=== PATIENT | female | born 1965 | race Caucasian/White ===

== ENCOUNTER 2021-08-23 14:45 | Outpatient (REF) | payer BC, SELFPAY ==
--- NOTE | ~2021-08-23 | MM_ITS ---
EXAMINATION: MM SCREENING DIGITAL BREAST TOMOSYNTHESIS, BILATERAL CLINICAL INFORMATION: Screening. Asymptomatic. The lifetime risk of breast cancer based on the Tyrer-Cuzick Model is 8%. COMPARISON: Mammography: 03/12/2020, 10/03/2018, 09/26/2018, 11/28/2016. Composition of the specimen. TECHNIQUE: Digital breast tomosynthesis is performed in both the craniocaudal and mediolateral oblique views along with computer-aided detection (CAD). Synthesized 2D images are generated from the tomosynthesis. FINDINGS: There are scattered areas of fibroglandular density (ACR BI-RADS breast composition Category b). Parenchymal pattern is similar to prior studies. There is no developing density or interval mass or architectural abnormality. Deep dermal lesion periareolar upper outer left breast is stable from prior studies measuring just under 1 cm. There is a stable nodular asymmetry posterior central right breast on CC view. Neither breast shows developing density or interval architectural abnormality. No abnormal calcifications. The axilla and skin contours are unremarkable. MM/MM tomosynthesis screening BI IMPRESSION: No significant changes from prior studies. ASSESSMENT: BI-RADS 2: Benign RECOMMENDATION: Routine annual mammography screening. This patient's information was entered into a reminder system with a target due date for their next mammogram.
== END 2021-08-23 14:46 | disposition home or self-care (01) ==
LOC: HO.MAMMO 14:45
PROVIDERS: Visit Provider Internal Medicine
DX: Z12.31 Encounter for screening mammogram for malignant neoplasm of breast (principal)
CPT/HCPCS: 77063; 77067

== ENCOUNTER 2021-10-04 13:37 | Outpatient (REF) | payer BC, SELFPAY ==
--- NOTE | ~2021-10-04 | XR_ITS ---
EXAMINATION: XR LUMBOSACRAL SPINE CLINICAL INFORMATION: Low back pain COMPARISON: Previous x-ray from 2006 TECHNIQUE: Three views of the lumbosacral spine. FINDINGS: There is mild curvature of the lower lumbar spine to the right. Bone alignment is otherwise normal. No fracture or dislocation is seen. There is degenerative disc disease at L4-L5. There is lower lumbar spine facet arthritis. XR/XR lumbar spine 2-3V IMPRESSION: Mild curvature of the lower lumbar spine to the right and degenerative change.
--- NOTE | ~2021-10-04 | XR_ITS ---
EXAMINATION: XR CERVICAL SPINE CLINICAL INFORMATION: Neck pain COMPARISON: None TECHNIQUE: 4 views of the cervical spine including swimmer's view were obtained. FINDINGS: Bone alignment is normal. No fracture or dislocation is seen. There is degenerative spondylosis from C3-C4 to C6-C7. There is disc space narrowing from C3-C4 to C5-C6. There are prominent bilateral C7 transverse processes. Prevertebral soft tissues are normal. XR/XR cervical spine 3V IMPRESSION: Degenerative changes.
== END 2021-10-04 13:38 | disposition home or self-care (01) ==
LOC: HO.HMGCX 13:37
PROVIDERS: Visit Provider Internal Medicine
DX: M54.2 Cervicalgia (principal); M54.50 Low back pain, unspecified
CPT/HCPCS: 72040; 72100

== ENCOUNTER → 2022-08-26 10:01 | Outpatient (BNVA) | payer BC, SELFPAY | PROVIDERS: PCP Internal Medicine; Visit Provider Surgery | DX: Z13.89 Encounter for screening for other disorder (principal) ==

== ENCOUNTER 2022-10-21 11:59 | Outpatient (REF) | payer BC, SELFPAY ==
--- NOTE | ~2022-10-21 | MM_ITS ---
EXAMINATION: MM SCREENING DIGITAL BREAST TOMOSYNTHESIS, BILATERAL CLINICAL INFORMATION: Screening. Asymptomatic. The lifetime risk of breast cancer based on the Tyrer-Cuzick Model is 7%. COMPARISON: Mammography: 08/23/2021, 03/12/2020, 10/03/2018, 09/26/2018, 11/28/2016; targeted left breast ultrasound 10/03/2018, 11/20/2015 TECHNIQUE: Digital breast tomosynthesis is performed in both the craniocaudal and mediolateral oblique views along with computer-aided detection (CAD). Synthesized 2D images are generated from the tomosynthesis. FINDINGS: There are scattered areas of fibroglandular density (ACR BI-RADS breast composition Category b). There are no significant masses, abnormal calcifications, or other abnormalities. Parenchymal pattern is similar to prior studies. No architectural abnormality. The axilla are unremarkable. Again, there is a chronic intradermal lesion likely sebaceous cyst periareolar 1:00 left breast, slightly increased in size from prior studies. This measures approximately 10 x 9 mm compared with prior measurement 7 x 5 mm. MM/MM tomosynthesis screening BI IMPRESSION: -No mammographic evidence of malignancy. -Chronic sebaceous cyst 1:00 periareolar left breast, 1 cm, slightly increased from prior exam. ASSESSMENT: BI-RADS 2: Benign RECOMMENDATION: Routine annual mammography screening. This patient's information was entered into a reminder system with a target due date for their next mammogram.
== END 2022-10-21 12:00 | disposition home or self-care (01) ==
LOC: HO.MAMMO 11:59
PROVIDERS: Visit Provider Internal Medicine
DX: Z12.31 Encounter for screening mammogram for malignant neoplasm of breast (principal)
CPT/HCPCS: 77063; 77067

== ENCOUNTER → 2022-11-03 14:12 | Outpatient (BNVA) | payer BC, SELFPAY | PROVIDERS: PCP Internal Medicine; Visit Provider Psychiatry & Neurology Psychiatry | DX: Z13.89 Encounter for screening for other disorder (principal) ==

== ENCOUNTER 2022-12-27 13:16 | Outpatient (REF) | payer BC, SELFPAY ==
--- NOTE | ~2022-12-27 | XR_ITS ---
EXAMINATION: XR SHOULDER, RIGHT CLINICAL INFORMATION: Pain COMPARISON: None available. TECHNIQUE: AP external rotation, Grashey, scapular Y, and axillary views of the right shoulder. FINDINGS: The bones are intact. No fracture. Glenohumeral and acromioclavicular alignment is anatomic with normal joint space. Small marginal osteophyte extends off the inferior aspect of the humeral head. No abnormal soft tissue calcifications. XR/XR shoulder RT min 2V IMPRESSION: No acute bony abnormality.
== END 2022-12-27 13:17 | disposition home or self-care (01) ==
LOC: HO.HMGCX 13:16
PROVIDERS: PCP Internal Medicine; Visit Provider Internal Medicine
DX: M25.511 Pain in right shoulder (principal)
CPT/HCPCS: 73030

== ENCOUNTER → 2023-03-02 15:42 | Outpatient (BNVA) | payer BC, SELFPAY | PROVIDERS: PCP Internal Medicine; Visit Provider Psychiatry & Neurology Psychiatry ==

== ENCOUNTER 2023-06-28 17:08 | Outpatient (AMB) | payer BC, SELFPAY ==
--- NOTE | 2023-06-28 13:13 | A.OFFPSYCH_ITS ---
Intake Intake Visit Reasons: Depression Allergies No Known Allergies Allergy (Verified 08/26/22 10:10) HPI- Psychiatric Chief Complaint: Depression HPI Narrative: Patient has been increasingly anxious depressed ruminating. Difficulty concentrating focusing with intrusive CT trophic thinking and worsening mood. The patient's mood has been oblique anxious catastrophic thinking hopeless helpless increasingly despondent difficulty functioning at work. Overwhelmed multiple changes feeling she is not getting appropriate direction and who to go to Past Psychiatric History: History of depression and panic attacks with agoraphobia used to see Dr. Brown Mental Status Exam Mental Status Exam Patient Appearance: Well Grooomed Patient Orientation: Person, Place, Time and Situation Level of Consciousness: Awake and Appropriate Mood Description: Depressed and Blunted Affect Description: Appropriate and Constricted Patient Cognition Impaired: No Ability to Follow Directions: Good Speech Pattern: Clear Memory Description: Intact Hallucinations: None Delusions: Not Present Thought Process: Intact and Goal Oriented Thought Content: positive for Goal Oriented, positive for Preoccupation, negative for Suicidal Ideation or negative for Homicidal Ideation Depressive Symptoms: Increased Anxiety, Increased Irritability, Hopelessness, Increased Fatigue, Loss of Energy and Difficulty Concentrating Judgement: Good Telehealth Telehealth Location of provider rendering services: practice address Location of patient: address on file Patient Identification confirmed using: Name, : Yes Telehealth method: video Patient verbally consented to treatment: Yes Patient verbally consented to billing insurance company: Yes Minutes spent on Phone/Video with Pt.: 28 Assessment and Plan Assessment & Plan (1) Dysthymia: Status: Acute Code(s): F34.1 - Dysthymic disorder (2) Generalized anxiety disorder: Status: Acute Code(s): F41.1 - Generalized anxiety disorder (3) Panic disorder [episodic paroxysmal anxiety]: Status: Acute Code(s): F41.0 - Panic disorder [episodic paroxysmal anxiety] Plan Patient increasingly depressed overwhelmed strongly urge patient to see EAP discussed 1 week leave and then return to work half time. Discussed problem- solving strategies consider increase fluoxetine to 60 mg versus Wellbutrin for augmentation strongly urged counseling in order to help maintain % effective and problem-solving denies any active SI . Strategies to manage anxiety catastrophic thinking Counseling and coordination of Care Pt. Self Management counseling: Breathing and Cognitive restructuring Diagnosis and Prognosis Counseling: Adequacy of current interventions Details: I spent [37] minutes reviewing the record, seeing the patient and documenting in the medical record. Counseling provided to the patient/caregiver as outlined below. Addressed patient/caregiver concerns regarding current medication regime including effective adherence. Addressed patient/caregiver concerns regarding diagnosis and prognosis including accuracy of diagnosis, prognosis over time, impact of diagnosis. Addressed patient/caregiver concerns regarding impact of recent stressors. PFSH Medical History Dysthymia Generalized anxiety disorder Panic disorder [episodic paroxysmal anxiety] Family History Maternal Uncle Pancreatic cancer Social History Alcohol intake: current Patient Tobacco Use Status: Never used Tobacco Social History: 1 sister mother alive mother father anxiety depression f disable d anxiety f alcogholic absent father mgm murdered mother ptsd Substance History: past heavy Trauma History: childhood phy emotional trauma Coding Level of Care Code Est Pt Level 3 (77969) Therapy 30m w/E&M (17725) Diagnoses Dysthymia F34.1 Generalized anxiety disorder F41.1 Panic disorder [episodic paroxysmal anxiety] F41.0
== END 2023-06-28 17:08 | disposition home or self-care (01) ==
LOC: HO.HOP 17:08
PROVIDERS: PCP Internal Medicine; Visit Provider Psychiatry & Neurology Psychiatry
DX: F34.1 Dysthymic disorder (principal); F41.1 Generalized anxiety disorder; F41.0 Panic disorder [episodic paroxysmal anxiety]
CPT/HCPCS: 90833; 99213

== ENCOUNTER → 2023-06-28 17:08 | Outpatient (BNVA) | payer BC, SELFPAY | PROVIDERS: PCP Internal Medicine; Visit Provider Psychiatry & Neurology Psychiatry ==

== ENCOUNTER 2023-10-24 12:09 | Outpatient (REF) | payer BC, SELFPAY | END 2023-10-24 12:10 | disposition home or self-care (01) | LOC: HO.MAMMO 12:09 | PROVIDERS: PCP Internal Medicine; Visit Provider Internal Medicine | DX: Z12.31 Encounter for screening mammogram for malignant neoplasm of breast (principal) | CPT/HCPCS: 77063; 77067 ==

== ENCOUNTER → 2023-10-24 12:15 | Outpatient (BNV) | payer BC, SELFPAY | PROVIDERS: PCP Internal Medicine; Visit Provider Radiology Diagnostic Radiology | DX: Z12.31 Encounter for screening mammogram for malignant neoplasm of breast (principal) | CPT/HCPCS: 77063; 77067 ==

== ENCOUNTER 2023-11-09 15:49 | Outpatient (AMB) | payer BC, SELFPAY ==
--- NOTE | 2023-11-09 13:12 | A.OFFPSYCH_ITS ---
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 Brown Mental Status Exam Mental Status Exam Patient Appearance: Well Grooomed Patient Orientation: Person, Place, Time and Situation Level of Consciousness: Awake and Appropriate Patient Behavior: Appropriate Mood Description: Depressed and Blunted Affect Description: Appropriate and Constricted Patient Cognition Impaired: No Ability to Follow Directions: Good Speech Pattern: Clear Memory Description: Intact Hallucinations: None Delusions: Not Present Thought Process: Intact and Goal Oriented Thought Content: positive for Goal Oriented, positive for Preoccupation, negative for Suicidal Ideation or negative for Homicidal Ideation Depressive Symptoms: Increased Anxiety, Increased Irritability, Hopelessness, Increased Fatigue, Loss of Energy and Difficulty Concentrating Judgement: Good Judgement and Insight: Difficulty with self motivation understanding need to approach anxiety in order to retrain the brain Telehealth Telehealth Location of provider rendering services: practice address Location of patient: address on file Patient Identification confirmed using: Name, : Yes Telehealth method: video Patient verbally consented to treatment: Yes Patient verbally consented to billing insurance company: Yes Minutes spent on Phone/Video with Pt.: 22 Assessment and Plan Assessment & Plan (1) Dysthymia: Status: Acute Code(s): F34.1 - Dysthymic disorder (2) Generalized anxiety disorder: Status: Acute Code(s): F41.1 - Generalized anxiety disorder (3) Panic disorder with agoraphobia: Status: Acute Code(s): F40.01 - Agoraphobia with panic disorder Plan Bupropion added for augmentation recommend consideration of L methyl folate individual counseling might benefit from 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 [employer] train brain better understanding how management of anxiety and depressive cognitions can be retrained and manage regular exercise also recommended fluoxetine lowered to 20 mg patient does have chronic work stress and uncertainty Medications: New bupropion HCl SR 100 mg PO BEDTIME 30 tabs 2RF Changed From fluoxetine 40 mg PO BEDTIME 90 caps 1RF To fluoxetine 20 mg PO DAILY 90 caps 1RF Counseling and coordination of Care Details-Self Mgmt counseling: See above Medication management counseling: Effectiveness, Side effects and Dosing range Details: I spent [] minutes reviewing the record, seeing the patient and documenting in the medical record. Counseling provided to the patient/caregiver as outlined below. Addressed patient/caregiver concerns regarding current medication regime including effect marni adherence. Addressed patient/caregiver concerns regarding diagnosis and prognosis including accuracy of diagnosis, prognosis over time, impact of diagnosis. Addressed patient/caregiver concerns regarding impact of recent stressors. [facility] Medical History (Updated 11/26/23 @ 17:12 by Pavan Zamora MD) Panic disorder with agoraphobia Panic disorder [episodic paroxysmal anxiety] Generalized anxiety disorder Dysthymia Family History Maternal Uncle Pancreatic cancer Social History Alcohol intake: current Patient Tobacco Use Status: Never used Tobacco Social History: 1 sister mother alive mother father anxiety depression f disable d anxiety f alcogholic absent father mgm murdered mother ptsd Substance History: past heavy Trauma History: childhood phy emotional trauma Coding Level of Care Code Tele Est Pt Level 3 (80502) Diagnoses Dysthymia F34.1 Generalized anxiety disorder F41.1 Panic disorder with agoraphobia F40.01
== END 2023-11-09 15:53 | disposition home or self-care (01) ==
LOC: HO.HOP 15:49
PROVIDERS: PCP Internal Medicine; Visit Provider Psychiatry & Neurology Psychiatry
DX: F34.1 Dysthymic disorder (principal); F41.1 Generalized anxiety disorder; F40.01 Agoraphobia with panic disorder
CPT/HCPCS: 99213

== ENCOUNTER → 2023-11-09 15:49 | Outpatient (BNVA) | payer BC, SELFPAY | PROVIDERS: PCP Internal Medicine; Visit Provider Psychiatry & Neurology Psychiatry ==

== ENCOUNTER 2023-12-05 16:42 | Outpatient (AMB) | payer BC, SELFPAY ==
--- NOTE | 2023-12-05 14:40 | MHC.OFFVISPS ---
Intake Intake Visit Reasons: depression Allergies No Known Allergies Allergy (Verified 08/26/22 10:10) HPI- Psychiatric Chief Complaint: depression HPI Narrative: Pt seen in f/u mood has been better on prozac taking wellbutrin there was technology glitch last wk that set things back encouraged to get out more does better fitness classes better able to enjoy things pt does seen somewhat better emotionally tolerating Wellbutrin without difficulty things seemingly going better more energy less distressed Past Psychiatric History: History of depression and panic attacks with agoraphobia used to see Dr. Brown Mental Status Exam Mental Status Exam Patient Appearance: Well Grooomed Patient Orientation: Person, Place, Time and Situation Level of Consciousness: Awake and Appropriate Patient Behavior: Appropriate Mood Description: Calm and Appropriate Affect Description: Appropriate Ability to Follow Directions: Good Speech Pattern: Clear Memory Description: Intact Hallucinations: None Delusions: Not Present Thought Process: Intact and Goal Oriented Thought Content: positive for Goal Oriented, negative for Suicidal Ideation or negative for Homicidal Ideation Depressive Symptoms: Increased Anxiety and Increased Irritability Judgement: Good Judgement and Insight: improved mood Telehealth Telehealth Telehealth Platform: [employer] Location of provider rendering services: practice address Location of patient: address on file Patient Identification confirmed using: Name, : Yes Telehealth method: video Patient verbally consented to treatment: Yes Patient verbally consented to billing insurance company: Yes Minutes spent on Phone/Video with Pt.: 25 Assessment and Plan Assessment & Plan (1) Generalized anxiety disorder: Status: Acute Code(s): F41.1 - Generalized anxiety disorder (2) Panic disorder with agoraphobia: Status: Acute Code(s): F40.01 - Agoraphobia with panic disorder Plan pt seem s improved working out doing better at work cont prozac wellbutrin discussed issues related stress management keeping things in perspective patient has been assertive at work does not want to do management though mood clearly improved no adverse effects noted Medications: Refilled bupropion HCl SR 100 mg PO DAILY 90 tabs 0RF alprazolam 0.5 mg PO BID PRN 60 tabs 2RF anxiety Counseling and coordination of Care Pt. Self Management counseling: Breathing and Exercise Diagnosis and Prognosis Counseling: Adequacy of current interventions Details: I spent [30] minutes reviewing the record, seeing the patient and documenting in the medical record. Counseling provided to the patient/caregiver as outlined below. Addressed patient/caregiver concerns regarding current medication regime including effective adherence. Addressed patient/caregiver concerns regarding diagnosis and prognosis including accuracy of diagnosis, prognosis over time, impact of diagnosis. Addressed patient/caregiver concerns regarding impact of recent stressors. [facility] Medical History (Updated 11/26/23 @ 17:12 by Pavan Zamora MD) Panic disorder with agoraphobia Panic disorder [episodic paroxysmal anxiety] Generalized anxiety disorder Dysthymia Family History Maternal Uncle Pancreatic cancer Social History Alcohol intake: current Patient Tobacco Use Status: Never used Tobacco Social History: 1 sister mother alive mother father anxiety depression f disable d anxiety f alcogholic absent father mgm murdered mother ptsd Substance History: past heavy Trauma History: childhood phy emotional trauma Coding Level of Care Code Tele Est Pt Level 4 (49072) Diagnoses Generalized anxiety disorder F41.1 Panic disorder with agoraphobia F40.01
== END 2023-12-05 16:43 | disposition home or self-care (01) ==
LOC: HO.HOP 16:42
PROVIDERS: PCP Internal Medicine; Visit Provider Psychiatry & Neurology Psychiatry
DX: F41.1 Generalized anxiety disorder (principal); F40.01 Agoraphobia with panic disorder
CPT/HCPCS: 99214

== ENCOUNTER → 2023-12-05 16:42 | Outpatient (BNVA) | payer BC, SELFPAY | PROVIDERS: PCP Internal Medicine; Visit Provider Psychiatry & Neurology Psychiatry | DX: F41.1 Generalized anxiety disorder (principal); F40.01 Agoraphobia with panic disorder ==

== ENCOUNTER 2024-01-15 15:40 | Outpatient (REF) | payer BC, SELFPAY ==
--- NOTE | ~2024-01-15 | XR_ITS ---
EXAMINATION: XR KNEE, RIGHT CLINICAL INFORMATION: Pain. COMPARISON: None available. TECHNIQUE: AP, lateral, tunnel, and sunrise views of the right knee. FINDINGS: No fracture or joint effusion. Alignment is anatomic. Joint spaces are maintained. No abnormal soft tissue calcification. XR/XR knee RT 2V IMPRESSION: Normal right knee. EXAMINATION: XR KNEE, LEFT CLINICAL INFORMATION: Pain. COMPARISON: None available. TECHNIQUE: AP, lateral, tunnel, and sunrise views of the left knee. FINDINGS: Bony alignment and mineralization are normal. The lateral, medial and patellofemoral joint space compartments are well-maintained. No fracture or dislocation is seen. There is a small joint effusion. No foreign body is seen. IMPRESSION: 1. No fracture, dislocation or joint change is seen. 2. There is a small joint effusion.
--- NOTE | ~2024-01-15 | XR_ITS ---
EXAMINATION: XR KNEE, RIGHT CLINICAL INFORMATION: Pain. COMPARISON: None available. TECHNIQUE: AP, lateral, tunnel, and sunrise views of the right knee. FINDINGS: No fracture or joint effusion. Alignment is anatomic. Joint spaces are maintained. No abnormal soft tissue calcification. XR/XR knee LT 2V IMPRESSION: Normal right knee. EXAMINATION: XR KNEE, LEFT CLINICAL INFORMATION: Pain. COMPARISON: None available. TECHNIQUE: AP, lateral, tunnel, and sunrise views of the left knee. FINDINGS: Bony alignment and mineralization are normal. The lateral, medial and patellofemoral joint space compartments are well-maintained. No fracture or dislocation is seen. There is a small joint effusion. No foreign body is seen. IMPRESSION: 1. No fracture, dislocation or joint change is seen. 2. There is a small joint effusion.
== END 2024-01-15 15:41 | disposition home or self-care (01) ==
LOC: HO.HMGCX 15:40
PROVIDERS: PCP Internal Medicine; Visit Provider Internal Medicine
DX: M25.562 Pain in left knee (principal); M25.561 Pain in right knee
CPT/HCPCS: 73560

== ENCOUNTER 2024-02-29 14:01 | Outpatient (AMB) | payer BC, SELFPAY ==
--- NOTE | 2024-02-29 13:34 | MHC.OFFVISPS ---
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 Patient is prone to depression, lack of energy feeling overwhelmed stressed difficulty with concentration which then makes work more difficult. Has been tolerating Prozac Wellbutrin Has just joined a gym is aware that regular excise is an excellent antidepressant and antianxiety technique. 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 Brown Mental Status Exam Mental Status Exam Patient Appearance: Well Grooomed Patient Orientation: Person, Place, Time and Situation Level of Consciousness: Awake and Appropriate Patient Behavior: Appropriate Mood Description: Depressed, Anxious and Blunted Affect Description: Constricted Ability to Follow Directions: Good Speech Pattern: Clear Memory Description: Intact Hallucinations: None Delusions: Not Present Thought Process: Intact and Goal Oriented Thought Content: positive for Goal Oriented, positive for Preoccupation, negative for Suicidal Ideation or negative for Homicidal Ideation Depressive Symptoms: Increased Anxiety, Increased Irritability, Increased Fatigue, Loss of Energy and Difficulty Concentrating Judgement and Insight: Patient has difficulty managing stress during the day was open to different options Telehealth Telehealth Telehealth Platform: [facility] Location of provider rendering services: practice address Location of patient: address on file Patient Identification confirmed using: Name, : Yes Telehealth method: video Patient verbally consented to treatment: Yes Patient verbally consented to billing insurance company: Yes Minutes spent on Phone/Video with Pt.: 25 Assessment and Plan Assessment & Plan (1) Panic disorder with agoraphobia: Status: Acute Code(s): F40.01 - Agoraphobia with panic disorder (2) Dysthymia: Status: Acute Code(s): F34.1 - Dysthymic disorder (3) Generalized anxiety disorder: Status: Acute Code(s): F41.1 - Generalized anxiety disorder Plan Encouraged daily walking exercise relaxation breathing encouraged daily walking relaxation breathing increase Wellbutrin to 150 mg continue Prozac 20 mg L methyl folate discussed treatment strategy with 7.5 mg for a month if no improvement and no side effects 15 mg daily in morning Encourage periods of time during the day for relaxation breathing taking a walk need to manage chronic stress Medications: Changed From bupropion HCl SR 100 mg PO DAILY 90 tabs 0RF To bupropion HCl SR 150 mg PO DAILY 90 tabs 0RF Refilled alprazolam 0.5 mg PO BID PRN 60 tabs 2RF anxiety Counseling and coordination of Care Pt. Self Management counseling: Breathing, Exercise and Cognitive restructuring Details-Self Mgmt counseling: Issues related to managing chronic stress and dilemma in staying at a job with chronic stress versus fears of starting new work Discussed recommendation of seeing [facility] Medication management counseling: Effectiveness, Side effects and Dosing range Diagnosis and Prognosis Counseling: Impact of diagnosis on life functions and Adequacy of current interventions Details: I spent [30] minutes reviewing the record, seeing the patient and documenting in the medical record. Counseling provided to the patient/caregiver as outlined below. Addressed patient/caregiver concerns regarding current medication regime including effective adherence. Addressed patient/caregiver concerns regarding diagnosis and prognosis including accuracy of diagnosis, prognosis over time, impact of diagnosis. Addressed patient/caregiver concerns regarding impact of recent stressors. [facility] Medical History (Updated 11/26/23 @ 17:12 by Pavan Zamora MD) Panic disorder with agoraphobia Panic disorder [episodic paroxysmal anxiety] Generalized anxiety disorder Dysthymia Family History Maternal Uncle Pancreatic cancer Social History Alcohol intake: current Patient Tobacco Use Status: Never used Tobacco Social History: 1 sister mother alive mother father anxiety depression f disable d anxiety f alcogholic absent father mgm murdered mother ptsd Substance History: past heavy Trauma History: childhood phy emotional trauma Coding Level of Care Code Tele Est Pt Level 4 (66013) Diagnoses Panic disorder with agoraphobia F40.01 Dysthymia F34.1 Generalized anxiety disorder F41.1
== END 2024-02-29 14:15 | disposition home or self-care (01) ==
LOC: HO.HOP 14:01
PROVIDERS: PCP Internal Medicine; Visit Provider Psychiatry & Neurology Psychiatry
DX: F40.01 Agoraphobia with panic disorder (principal); F34.1 Dysthymic disorder; F41.1 Generalized anxiety disorder
CPT/HCPCS: 99214

== ENCOUNTER → 2024-02-29 14:01 | Outpatient (BNVA) | payer BC, SELFPAY | PROVIDERS: PCP Internal Medicine; Visit Provider Psychiatry & Neurology Psychiatry | DX: F41.1 Generalized anxiety disorder (principal); F40.01 Agoraphobia with panic disorder ==

== ENCOUNTER 2024-05-31 12:31 | Outpatient (AMB) | payer BC, SELFPAY ==
--- NOTE | 2024-05-31 12:17 | MHC.OFFVISPS ---
Intake Intake Visit Reasons: depression Allergies No Known Allergies Allergy (Verified 08/26/22 10:10) Medication List - Last Reconciled 05/31/24 by Pavan Zamora MD alprazolam 0.5 mg PO BID PRN bupropion HCl SR 150 mg PO DAILY fluoxetine 40 mg PO BEDTIME fluoxetine 20 mg PO DAILY rosuvastatin 5 mg PO DAILY HPI- Psychiatric Chief Complaint: depression HPI Narrative: pt seen in f/u feeling better generally tolerating wellbutrin feels more energy less prone to depression. Does tend toward seasonal depression.Feeling better generally re work better ability Things good at home goes into work about 1 x wk . seems to be less overwhelmed by panic symptoms things going well at home, has felt more supported by a new [employer] supervisor at work. seems to be doing better on higher dose Wellbutrin ,no complaints of side effects. Past Psychiatric History: History of depression and panic attacks with agoraphobia used to see Dr. Brown Mental Status Exam Mental Status Exam Patient Appearance: Well Grooomed Patient Orientation: Person, Place, Time and Situation Level of Consciousness: Awake and Appropriate Patient Behavior: Appropriate Mood Description: Calm and Appropriate Affect Description: Appropriate Ability to Follow Directions: Good Speech Pattern: Clear Memory Description: Intact Hallucinations: None Delusions: Not Present Thought Process: Intact and Goal Oriented Thought Content: positive for Intact, positive for Goal Oriented, negative for Suicidal Ideation or negative for Homicidal Ideation Depressive Symptoms: Difficulty Concentrating Judgement and Insight: more insight in stress tolerance Telehealth Telehealth Telehealth Platform: [facility] Location of provider rendering services: practice address Location of patient: address on file Patient Identification confirmed using: Name, : Yes Telehealth method: video Patient verbally consented to treatment: Yes Patient verbally consented to billing insurance company: Yes Minutes spent on Phone/Video with Pt.: 21 Assessment and Plan Assessment & Plan (1) Generalized anxiety disorder: Status: Acute Code(s): F41.1 - Generalized anxiety disorder Assessment and Plan: cont prozac wellbutrin urged relaxation breathing (2) Panic disorder [episodic paroxysmal anxiety]: Status: Acute Code(s): F41.0 - Panic disorder [episodic paroxysmal anxiety] Plan Hx of depression and panic mood has been stable doing well feels better with prozac and wellbutrin. Seems better adapted to work setting . Have discussed tools to manage anxiety and stress. Depression seems in remission also discussed use of lightbox Counseling and coordination of Care Pt. Self Management counseling: Breathing Medication management counseling: Effectiveness and Side effects Diagnosis and Prognosis Counseling: Problematic behaviors secondary to diagnosis Details: I spent [28] minutes reviewing the record, seeing the patient and documenting in the medical record. Counseling provided to the patient/caregiver as outlined below. Addressed patient/caregiver concerns regarding current medication regime including effective adherence. Addressed patient/caregiver concerns regarding diagnosis and prognosis including accuracy of diagnosis, prognosis over time, impact of diagnosis. Addressed patient/caregiver concerns regarding impact of recent stressors. [facility] Medical History (Updated 11/26/23 @ 17:12 by Pavan Zamora MD) Panic disorder with agoraphobia Panic disorder [episodic paroxysmal anxiety] Generalized anxiety disorder Dysthymia Family History Maternal Uncle Pancreatic cancer Social History Alcohol intake: current Patient Tobacco Use Status: Never used Tobacco Social History: 1 sister mother alive mother father anxiety depression f disable d anxiety f alcogholic absent father mgm murdered mother ptsd Substance History: past heavy Trauma History: childhood phy emotional trauma Coding Level of Care Code Tele Est Pt Level 4 (55867) Diagnoses Generalized anxiety disorder F41.1 Panic disorder [episodic paroxysmal anxiety] F41.0
== END 2024-05-31 12:34 | disposition home or self-care (01) ==
LOC: HO.HOP 12:31
PROVIDERS: PCP Internal Medicine; Visit Provider Psychiatry & Neurology Psychiatry
DX: F41.1 Generalized anxiety disorder (principal); F41.0 Panic disorder [episodic paroxysmal anxiety]
CPT/HCPCS: 99214

== ENCOUNTER 2024-09-06 13:52 | Outpatient (AMB) | payer BC, SELFPAY ==
--- NOTE | 2024-09-06 12:12 | A.OFFPSYCH_ITS ---
Intake Intake Visit Reasons: depression Allergies No Known Allergies Allergy (Verified 08/26/22 10:10) HPI- Psychiatric Chief Complaint: depression HPI Narrative: Pt seen in f/u mood has been improved generally. Feeling more relaxed with her work, and generally feeling more supported Past Psychiatric History: History of depression and panic attacks with agoraphobia used to see Dr. Brown Mental Status Exam Mental Status Exam Narrative: Mental Status Exam Narrative: Appearance: Casually dressed Behavior: Cooperative appropriate psychomotor: Within normal limits Speech: Normal volume and prosody Thought proccess logical and goal-directed Thought content: Future oriented focused on treatment Mood: Euthymic Affect: Appropriate to mood full affect SI:denies HI:denies VH/AH:none Delusions: None Insight/judgment: Good insight and judgment Memory/cog: Intact Telehealth Telehealth Telehealth Platform: [employer] Location of provider rendering services: practice address Location of patient: address on file Patient Identification confirmed using: Name, : Yes Telehealth method: video Patient verbally consented to treatment: Yes Patient verbally consented to billing insurance company: Yes Minutes spent on Phone/Video with Pt.: 11 Assessment and Plan Assessment & Plan (1) Generalized anxiety disorder: Status: Acute Code(s): F41.1 - Generalized anxiety disorder (2) Panic disorder with agoraphobia: Status: Acute Code(s): F40.01 - Agoraphobia with panic disorder Plan Appears significantly improved continue plan of care no complaints of side effects no evidence of abuse or tolerance Medications: Refilled fluoxetine 20 mg PO DAILY 90 caps 1RF alprazolam 0.5 mg PO BID PRN 60 tabs 2RF anxiety Counseling and coordination of Care Medication management counseling: Effectiveness, Side effects and Dosing range Diagnosis and Prognosis Counseling: Adequacy of current interventions Details: I spent [15] minutes reviewing the record, seeing the patient and documenting in the medical record. Counseling provided to the patient/caregiver as outlined below. Addressed patient/caregiver concerns regarding current medication regime including effective adherence. Addressed patient/caregiver concerns regarding diagnosis and prognosis including accuracy of diagnosis, prognosis over time, impact of diagnosis. Addressed patient/caregiver concerns regarding impact of recent stressors. [facility] Medical History (Updated 11/26/23 @ 17:12 by Pavan Zamora MD) Panic disorder with agoraphobia Panic disorder [episodic paroxysmal anxiety] Generalized anxiety disorder Dysthymia Family History Maternal Uncle Pancreatic cancer Social History Alcohol intake: current Patient Tobacco Use Status: Never used Tobacco Social History: 1 sister mother alive mother father anxiety depression f disable d anxiety f alcogholic absent father mgm murdered mother ptsd Substance History: past heavy Trauma History: childhood phy emotional trauma Coding Level of Care Code Tele Est Pt Level 3 (20020) Diagnoses Generalized anxiety disorder F41.1 Panic disorder with agoraphobia F40.01
--- OUTSIDE RECORDS SUMMARY | 2024-09-06 13:56 | XMS_ITS ---
Author Organization [facility] Address [address] [address] Care Team Providers Care Snuff Blender Name Role Phone DYANA Moore, HAN Primary Care Provider Cara Geller Unavailable [phone] REASON FOR VISIT Annual (YELLOW FORM DONE) Encounters Encounter Location Date Provider Diagnosis [facility] [address] [address] 11/24/2023 Cara Luo Plan Of Treatment No Information Progress Notes * ROBERT BRIGHTOB:1965 (58 yo F)Acc No.[id number]:11/24/2023 PROGRESS NOTES Patient:?DEANGELO KERI Appointment Provider:?Cara see M.D. :1965???Age:57 Y???Sex:Female D ate:11/24/2023 Address:[address] [place], [place] [id number] Pcp:HAN TURPIN M.D. Subjective: * Chief Complaints: * ???1. Annual (YELLOW FORM DO NE). * Medical History:? Objective: * Vitals:? Assessment: Plan: * Treatment: * Images: Billing Information: * Visit Code:? * Procedure Codes:? * Electronic signature of Alejandro Luo MD on 09/06/2024 at 01:55 PM EST Sign off status: Pending * Appointment Provider:?Cara Luo M.D. Date:?11/24/2023 Generated for Lottie joe/Keenan/Mar on:?09/06/2024 01:55 PM EST
== END 2024-09-06 13:54 | disposition home or self-care (01) ==
LOC: HO.HOP 13:52
PROVIDERS: PCP Internal Medicine; Visit Provider Psychiatry & Neurology Psychiatry
DX: F41.1 Generalized anxiety disorder (principal); F40.01 Agoraphobia with panic disorder
CPT/HCPCS: 99213

== ENCOUNTER → 2024-09-06 13:52 | Outpatient (BNVA) | payer BC, SELFPAY | PROVIDERS: PCP Internal Medicine; Visit Provider Psychiatry & Neurology Psychiatry ==

== ENCOUNTER 2024-10-29 12:11 | Outpatient (REF) | payer BC, SELFPAY ==
--- OUTSIDE RECORDS SUMMARY | 2024-10-29 14:49 | XMS_ITS | Patient Health Record ---
Author Organization [facility] Address [address] [facility] [facility] [address] [place] [address] Care Team Providers Care Applications Processor Name Role Phone HAN TURPIN M.D. Primary Care Provider Unavail able ValerioAlanali Unavailable [phone] Allergies No Known Allergies Reason For Referral No Information Medications Medication SIG (Take, Route, Frequency, Duration) Notes Start Date End Date Status PROzac Active Clobetasol Propionate 0.05 % 1 application to affected area Externally Q OTHER NIGHT FOR A MONTH THEN TWICE WEEKLY for 90 DAYS 11/14/2022 Active Rosuvastatin Calcium 5 MG TAKE 1 TABLET BY MOUTH EVERY DAY Oral for 90 Active ALPRAZolam 0.5 MG TAKE 1 TABLET BY YURIY TH TWICE A DAY NEEDED FOR ANXIETY Oral for 30 Active Multi Vitamin Active Social History Tobacco Use: Social History Observation Description Date Details (start date - stop date) Former Smoker NA - NA Tobacco Use/Smoking Question Answer Notes Are you a former smoker How long has it been since you last smoked? 1-5 years Alcohol Screen (Audit-C) Question Answer Notes Did you have a drink contain ing alcohol in the past year? Yes How often did you have a dri nk containing alcohol in the past year? 2 to 4 times a month (2 points) How many drinks did you have on a typical day when you were drinking in the past year? 3 or 4 drinks (1 point) How often did you have 6 or more drinks on one occasion in the past year? Never (0 point) Points 3 Interpretation Positive Sexual History Question Answer Notes Had sex in the past 12 months (vaginal, oral, or anal)? Yes with Men only Prevention strategies discussed: Other Tobacco use other than smoking: Question Answer Notes Are you an other tobacco user? 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 EXERCISE: occasional aerobic activity SEXUAL ACTIVITY: not sexually active Heterosexual SMOKER: 1/2 -1 PPD 20 Problems Problem Type SNOMED Code ICD Code Onset Dates Problem Status W/U Status Risk Notes Problem Depressive disorder (43059679) Depressive disorder, not elsewhere classified (311) Active confirmed Problem Postmenopausal bleeding (60110860) Postmenopausal bleeding (N95.0) Active confirmed Problem Localized morphea (339378255) Lichen sclerosus et atrophicus (L90.0) Active confirmed Problem History of dysplasia of cervix (844663879) Personal history of cervical dysplasia (Z87.410) Active confirmed Problem Tobacco user (106896350) Nondependent tobacco use disorder (305.1) Active confirmed Major Problem Dysmenorrhea (035400931) Dysmenorrhea (625.3) Active confirmed Diag Plan Of Treatment Pending Test Test Name Order Date Sonohysterogram 02/18/2020 RPR 01/20/2015 Hepatitis C antibody 01/20/2015 HIV 01/20/2015 MAMMOGRAM, SCREENING 01/20/2015 Ultrasound : Sono Hystergram 01/20/2015 ENDOMETRIAL BX 01/20/2015 Hep B S antigen 01/20/2015 ANTI-HEPATITIS C 05/07/2019 THIN PREP,HPV,JULIA IF HPV+ (>29YR)(DIAG) 11/14/2022 THIN PREP,HPV,JULIA IF HPV+/CYT-,CT/GC(>2 9YR)(DIAG) 05/07/2019 MM Digital Mammo Screening 11/14/2022 MM Digital Screening Mammogram 3D 2018 Insurance Providers Payer Name Payer Address Payer Phone Subscriber Number Group Number Insured Name Patient Relationship to Insured Coverage Start Date Coverage End Date [employer] [place] [address] [place] [address] [id number] KERI BRIGHT Self - patient is the insured Medical (General) History Medical History History ICD Code Endometriosis of uterus N80.0 Dysmenorrhea, unspecified N94.6 Nicotine dependence, cigarettes, uncompl icated F17.210 Major depressive disorder, recurrent, in remission, unspecified F33.40 Anxiety disorder, unspecified F41.9 Postmenopausal bleeding N95.0 Lichen sclerosus et atrophicus L90.0 Pruritus vulvae L29.2 Surgical History Surgery Date(Month/Year) LEEP 2010 Cryosurgery of Cervix 2009 Hospitalization History Reason Date(Month/Year) Child
--- OUTSIDE RECORDS SUMMARY | 2024-10-29 14:49 | XMS_ITS ---
Author Organization [facility] Address [address] [address] Care Team Providers Care Special Order Jeweler Name Role Phone DYANA Moore, HAN Primary Care Provider Cara Geller Unavailable [phone] REASON FOR VISIT Annual (YELLOW FORM DONE) Encounters Encounter Location Date Provider Diagnosis [facility] [address] [address] 11/24/2023 Cara Luo Plan Of Treatment No Information Progress Notes * ROBERT BRIGHTOB:1965 (58 yo F)Acc No.[id number]:11/24/2023 PROGRESS NOTES Patient:?DEANGELO KERI Appointment Provider:?Cara see M.D. :1965???Age:57 Y???Sex:Female D ate:11/24/2023 Address:[address] [place], [place] [address] Pcp:HAN TURPIN M.D. Subjective: * Chief Complaints: * ???1. Annual (YELLOW FORM DO NE). * Medical History:? Objective: * Vitals:? Assessment: Plan: * Treatment: * Images: Billing Information: * Visit Code:? * Procedure Codes:? * Electronic signature of Alejandro Luo MD on 10/29/2024 at 02:49 PM EDT Sign off status: Pending * Appointment Provider:?Cara Luo M.D. Date:?11/24/2023 Generated for Lottie joe/Keenan/Mar on:?10/29/2024 02:49 PM EDT
== END 2024-10-29 12:12 | disposition home or self-care (01) ==
LOC: HO.MAMMO 12:11
PROVIDERS: PCP Internal Medicine; Visit Provider Internal Medicine
DX: Z12.31 Encounter for screening mammogram for malignant neoplasm of breast (principal)
CPT/HCPCS: 77063; 77067

== ENCOUNTER → 2024-10-29 12:15 | Outpatient (BNV) | payer BC, SELFPAY | PROVIDERS: PCP Internal Medicine; Visit Provider Internal Medicine | DX: Z12.31 Encounter for screening mammogram for malignant neoplasm of breast (principal) | CPT/HCPCS: 77063; 77067 ==

== ENCOUNTER 2025-01-21 13:50 | Outpatient (AMB) | payer BC, SELFPAY ==
--- NOTE | 2025-01-21 13:37 | A.OFFPSYCH_ITS ---
Intake Intake Visit Reasons: depression Allergies No Known Allergies Allergy (Verified 08/26/22 10:10) Medication List - Last Reconciled 01/21/25 by Pavan Zamora MD alprazolam 0.5 mg PO BID PRN bupropion HCl SR 150 mg PO DAILY fluoxetine 40 mg PO BEDTIME fluoxetine 20 mg PO DAILY rosuvastatin 5 mg PO DAILY HPI- Psychiatric Chief Complaint: depression HPI Narrative: Patient seen psychiatric follow-up. Patient generally doing well but has periods of depression and irritability mostly related to stress at work. They did hire someone to help her with her workload and that person is apparently causing her some difficulty with complaints and she is feeling not her that has been quite stressful. Have discussed with patient possibility of counseling stress reduction meditation relaxation exercises recommended daily walks break up the workday. The patient works from home Past Psychiatric History: History of depression and panic attacks with agoraphobia used to see Dr. Brown Mental Status Exam Mental Status Exam Narrative: Mental Status Exam Narrative: Appearance: Casually dressed Behavior: Cooperative appropriate psychomotor: Within normal limits Speech: Normal volume and prosody Thought proccess logical and goal-directed Thought content: Future oriented focused on treatment focused on issues at work Mood: Anxious dysphoric Affect: Appropriate to mood somewhat constricted SI:denies HI:denies VH/AH:none Delusions: None Insight/judgment: Good insight and judgment Memory/cog: Intact Telehealth Telehealth Telehealth Platform: [facility] Location of provider rendering services: practice address Location of patient: address on file Patient Identification confirmed using: Name, : Yes Telehealth method: video Patient verbally consented to treatment: Yes Patient verbally consented to billing insurance company: Yes Minutes spent on Phone/Video with Pt.: 19 Assessment and Plan Assessment & Plan (1) Dysthymia: Status: Acute Code(s): F34.1 - Dysthymic disorder (2) Generalized anxiety disorder: Status: Acute Code(s): F41.1 - Generalized anxiety disorder (3) Panic disorder [episodic paroxysmal anxiety]: Status: Acute Code(s): F41.0 - Panic disorder [episodic paroxysmal anxiety] Plan Patient would benefit from ongoing stress management discussed taking breaks during the day taking a walk relaxation breathing patient will be talking to management. Continue fluoxetine and Wellbutrin follow-up 3-4 months. 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 [employer] Combination of Prozac Wellbutrin has been helpful have urge patient to use lowest dose of alprazolam needed Medications: Refilled fluoxetine 20 mg PO DAILY 90 caps 1RF alprazolam 0.5 mg PO BID PRN 60 tabs 2RF anxiety bupropion HCl SR 150 mg PO DAILY 90 tabs 0RF Counseling and coordination of Care Details: I spent [] minutes reviewing the record, seeing the patient and documenting in the medical record. Counseling provided to the patient/caregiver as outlined below. Addressed patient/caregiver concerns regarding current medication regime including effective adherence. Addressed patient/caregiver concerns regarding diagnosis and prognosis including accuracy of diagnosis, prognosis over time, impact of diagnosis. Addressed patient/caregiver concerns regarding impact of recent stressors. [facility] Medical History (Updated 11/26/23 @ 17:12 by Pavan Zamora MD) Panic disorder with agoraphobia Panic disorder [episodic paroxysmal anxiety] Generalized anxiety disorder Dysthymia Family History Maternal Uncle Pancreatic cancer Social History Alcohol intake: current Patient Tobacco Use Status: Never used Tobacco Social History: 1 sister mother alive mother father anxiety depression f disable d anxiety f alcogholic absent father mgm murdered mother ptsd Substance History: past heavy Trauma History: childhood phy emotional trauma Coding Level of Care Code Tele Est Pt Level 4 (12357) Diagnoses Dysthymia F34.1 Generalized anxiety disorder F41.1 Panic disorder [episodic paroxysmal anxiety] F41.0
--- OUTSIDE RECORDS SUMMARY | 2025-01-21 15:00 | XMS_ITS | Patient Health Record ---
Author Organization [facility] Address [address] [place] [address] Care Team Providers Care Door Closer Mechanic Name Role Phone HAN TURPIN M.D. Primary Care Provider Unavail able LuoAlanali Unavailable [phone] Allergies No Known Allergies Reason For Referral No Information Medications Medication SIG (Take, Route, Frequency, Duration) Notes Start Date End Date Status PROzac Active Clobetasol Propionate 0.05 % 1 application to affected area Externally Q OTHER NIGHT FOR A MONTH THEN TWICE WEEKLY; Duration: 90 DAYS 11/14/2022 Active Rosuvastatin Calcium 5 MG TAKE 1 TABLET BY MOUTH EVERY DAY Oral; Duration: 90 Active ALPRAZolam 0.5 MG TAKE 1 TABLET BY YURIY TH TWICE A DAY NEEDED FOR ANXIETY Oral; Duration: 30 Active Multi Vitamin Active Social History [...] W/U Status Risk Notes Problem Depressive disorder (41440915) Depressive disorder, not elsewhere classified (311) Active confirmed Problem Postmenopausal bleeding (N95.0) Active confirmed Problem Localized morphea (038227613) Lichen sclerosus et atrophicus (L90.0) Active confirmed Problem History of dysplasia of cervix (504272569) Personal history of cervical dysplasia (Z87.410) Active confirmed Problem Tobacco user (457874719) Nondependent tobacco use disorder (305.1) Active confirmed Major Problem Dysmenorrhea (926134680) Dysmenorrhea (625.3) Active confirmed Diag Plan Of [...] End Date [employer] [address] [place] [address] [id number] KERI BRIGHT Self - patient is the insured Medical (General) History Medical History History ICD Code Endometriosis of uterus N80.0 Dysmenorrhea, unspecified N94.6 Nicotine dependence, cigarettes, uncompl icated F17.210 Major depressive disorder, recurrent, in remission, unspecified F33.40 Anxiety disorder, unspecified F41.9 Postmenopausal bleeding N95.0 Lichen sclerosus et atrophicus L90.0 Pruritus vulvae L29.2 Surgical History Surgery Date(Month/Year) LEEP 2009 Cryosurgery of Cervix 2009 Hospitalization History Reason Date(Month/Year) Child
== END 2025-01-21 13:51 | disposition home or self-care (01) ==
LOC: HO.HOP 13:50
PROVIDERS: PCP Internal Medicine; Visit Provider Psychiatry & Neurology Psychiatry
DX: F34.1 Dysthymic disorder (principal); F41.1 Generalized anxiety disorder; F41.0 Panic disorder [episodic paroxysmal anxiety]
CPT/HCPCS: 99214

== ENCOUNTER 2025-04-01 11:33 | Outpatient (AMB) | payer BC, SELFPAY ==
--- OUTSIDE RECORDS SUMMARY | 2023-11-24 11:00 | XMS_ITS ---
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 :1965 A ge:57 Y S ex:Female Date:11/24/2023 Address:[address] [place], [place] [id number] Pcp:HAN TURPIN M.D. Subjective: * Chief Complaints: * 1 . Annual (YELLOW FORM DONE). * Medical History: Objective: * Vitals: Assessment: Plan: * Treatment: * Images: Billing Information: * Visit Code: * Procedure Codes: * Electronic signature of Alejandro Luo MD on 04/01/2025 at 02:04 PM EDT Sign off status: Pending * Appointment Provider: Jesika Luo M.D. Date: 0 11/24/2023 Generated for Printi ng/Faxing/eTransmitting on: 0 04/01/2025 02:04 PM EDT
--- NOTE | 2025-04-01 11:31 | MHC.PC.OV ---
Vital Signs 04/01/25 11:33 Height 5 ft 7.13 in Weight 210 lb BMI 32.8 BP 113/64 Respiration 16 Pulse 72 Pulse Source Pulse Oximeter Temp 97.9 F Temp Source Temporal Artery Scan Pulse Oximetry (%) 99 Oxygen Delivery Method Room Air Intake Visit Reasons: [facility] Care Dr. Patterson - see comments Benefits Coordinator Required: No Accompanied by: Self / Same As Patient Allergies No Known Allergies Allergy (Verified 04/01/25 11:31) Tobacco use date assessed: 04/01/25 Dental Screening Dental Screen Date: 04/01/25 Did you have a dental visit in the last 12 months?: Yes Did you have a dental problem in the last 6 months where you did not have access to dental care?: No Was dental information given to patient?: Patient has dentist [facility] Medical History Panic disorder with agoraphobia Panic disorder [episodic paroxysmal anxiety] Generalized anxiety disorder Dysthymia Family History Maternal Uncle Pancreatic cancer Mother No problems noted. Social History Housing: Apartment Alcohol intake: current Alcohol intake frequency: holidays/special occasions only Patient Tobacco Use Status: Former Tobacco user service: No Current occupational status: employed Cognitive needs: No Hearing needs: No Vision needs: Yes (rx glasses) Female Reproductive History Menstrual Age of Menarche: 15 Questionnaire PHQ-9 Over the last 2 weeks, how often have you been bothered by any of the following problems? 1. Little interest or pleasure in doing things: not at all 2. Feeling down, depressed, or hopeless: not at all 3. Trouble falling or staying asleep, or sleeping too much: not at all 4. Feeling tired or having little energy: not at all 5. Poor appetite or overeating: not at all 6. Feeling bad about yourself - or that you are a failure or have let yourself or your family down: not at all 7. Trouble concentrating on things, such as reading the newspaper or watching television: not at all 8. Moving or speaking so slowly that other people could have noticed. Or the opposite - being so fidgety or restless that you have been moving around a lot more than usual: not at all 9. Thoughts that you would be better off or of hurting yourself in some way: not at all Total score: 0 Source: Developed by Drs. Héctor Abbasi, Jessica Rodriguez, Blas Charles and colleagues, with an educational philippe from [employer]. Thrive Questionnaire Date Thrive assessed: 04/01/25 I am a: Patient What is your living situation today?: I have a steady place to live Within the past 12 months, did the food you bought not last and you didn't have the money to get more?: Never true Within the past 12 months, did you worry whether your food would run out before you got money to buy more?: Never true Do you have trouble paying for medicines?: No Do you have trouble getting transportation to medical appointments?: No Do you have trouble paying your heating and electricity bill?: No Do you have trouble taking care of your child, family member or friend?: No Do you have trouble with day-to-day activities such as bathing, preparing meals, shopping, managing finances, etc.?: No Are you currently unemployed and looking for a job?: No Are you interested in more education?: No Please select the resources that you would like help with: None THRIVE Score: 0 AUDIT C Alcohol Use Questionnaire (AUDIT-C) 1. How often do you have a drink containing alcohol?: Monthly or less 2. How many drinks containing alcohol do you have on a typical day when you are drinking?: 1 or 2 3. How often do you have six or more drinks on one occasion?: Never Total Score: 1 BUFFY-7 AMB Questionnaire BUFFY-7 Date BUFFY - 7 assessed: 04/01/25 Feeling nervous, anxious, or on edge: 0 = Not at all Not being able to stop or control worryin = Not at all Worrying too much about different things: 0 = Not at all Trouble relaxin = Not at all Being so restless that it is hard to sit still: 0 = Not at all Becoming easily annoyed or irritable: 0 = Not at all Feeling afraid as if something awful might happen: 0 = Not at all Total BUFFY-7 score (0-4 normal; 5-9 mild; 10-14 moderate; 15-21 severe): 0 Source: Developed by Drs. Héctor Abbasi, Jessica Rodriguez, Blas Charles and colleagues, with an educational philippe from [employer]. Physical exam (Primary Care) Vital Signs: Last Vital Signs Temp 97.9 F 04/01/25 11:33 Pulse 72 04/01/25 11:33 Resp 16 04/01/25 11:33 BP 113/64 04/01/25 11:33 Pulse Ox 99 04/01/25 11:33 Oxygen Delivery Method Room Air 04/01/25 11:33 BMI result Body Mass Index 32.8 Tobacco/Smoking Status: Tobacco use Status Tobacco use date assessed 04/01/25 04/01/25 11:33 Patient Tobacco Use Status Former Tobacco user 04/01/25 11:43 PHQ-9: PHQ-9 Score PHQ-9: Total score 0 04/02/25 10:08 Thrive Assessment: Date of Thrive Assessment Date Thrive assessed 04/01/25 04/01/25 11:33 Const General: cooperative and healthy appearing Nutritional Appearance: well nourished Orientation/consciousness: patient oriented x3 Limitations: no limitations HENMT Head: Yes normal to inspection Eyes General: appearance normal, both eyes and all related structures Neck Neck: Yes normal visual inspection Chest Chest palpation & inspection: normal palpation of entire chest wall Resp Effort & Inspection: normal respiratory effort Neuro General: patient oriented x3 Coding Level of Care Code New Pt Level 4 (99883) Complex EM visit Add On G2211 Diagnoses Dysthymia F34.1 Assessment & Plan Assessment & Plan (1) Dysthymia: Code(s): F34.1 - Dysthymic disorder Category: Medical Plan History of Present Illness - The patient is a 59-year-old female presenting for a wellness visit and management of chronic conditions. - Borderline hyperglycemia: The patient reports a history of borderline elevated blood glucose levels. - Hypercholesterolemia: The patient has experienced elevated cholesterol levels at times, with the last blood work in September showing normal results. - Preventative care: The patient has not undergone a colonoscopy but is considering a stool test for colon cancer screening. Health Maintenance - Colon cancer screening: Discussed the option of a stool test for colon cancer screening. Social History Review of Systems - General: Denies any current health concerns. Physical Exam Results Plan Patient was informed and verbally consented to the use of an ambient scribe for clinic note documentation during this visit. 1. Borderline Hyperglycemia - Plan to repeat fasting blood glucose levels to monitor the condition. 2. Hypercholesterolemia - Plan to repeat lipid panel to assess current cholesterol levels. 3. Preventative Care: Colon Cancer Screening With Stool Test - Discussed the option of using a stool test for colon cancer screening, which the patient is considering. Discussion Notes I discussed with the patient the importance of monitoring her blood glucose and cholesterol levels. We agreed to repeat these tests to ensure they remain within normal limits. Additionally, we talked about the option of a stool test for colon cancer screening, which she is considering as an alternative to colonoscopy. Patient Instructions - Schedule and complete fasting blood tests for glucose and cholesterol. - Consider the stool test for colon cancer screening and follow up with the clinic if interested. Orders: Orders Complete Blood Count no Diff 04/01/25 F34.1 - Dysthymic disorder Thyroid Stimulating Hormone 04/01/25 F34.1 - Dysthymic disorder Basic Metabolic Panel 04/01/25 F34.1 - Dysthymic disorder UA and rflx microscopic 04/01/25 F34.1 - Dysthymic disorder Lipid Panel 04/01/25 F34.1 - Dysthymic disorder Liver Panel 04/01/25 F34.1 - Dysthymic disorder Referrals Cologuard Test Z12.11 - Encounter for screening for malignant neoplasm of colon
[2025-04-01 11:33] VITALS: BP 113/64; PULSE 72; RESP 16; TEMP 36.6; O2SAT 99; BMI 32.8
--- OUTSIDE RECORDS SUMMARY | 2025-04-01 14:05 | XMS_ITS | Patient Health Record ---
Author Organization [facility] Address [address] [place] [address] Care Team Providers Care Classroom Monitor Name Role Phone HAN TURPIN M.D. Primary Care Provider Unavail able LuoAlanali Unavailable [phone] Allergies No Known Allergies Reason For Referral [...] W/U Status Risk Notes Problem Depressive disorder (90303445) Depressive disorder, not elsewhere classified (311) Active confirmed Problem Postmenopausal bleeding (63731744) Postmenopausal bleeding (N95.0) Active confirmed Problem Localized morphea (657998997) Lichen sclerosus et atrophicus (L90.0) Active confirmed Problem History of dysplasia of cervix (821740139) Personal history of cervical dysplasia (Z87.410) Active confirmed Problem Tobacco user (208018605) Nondependent tobacco use disorder (305.1) Active confirmed Major Problem Dysmenorrhea (592100184) Dysmenorrhea (625.3) Active confirmed Diag Plan Of [...] End Date [employer] [address] [place] [address] [id number] KERI BRIGHT Self - patient is the [...]
== END 2025-04-01 11:56 | disposition home or self-care (01) ==
LOC: HO.HMCSH 11:33
PROVIDERS: PCP Internal Medicine; Visit Provider Internal Medicine
DX: F34.1 Dysthymic disorder (principal)